=== PATIENT | male | born 1960 | race Caucasian/White ===

== ENCOUNTER 2017-03-13 21:28 | Emergency (ER) | payer BC ==
[~2017-03-13] VITALS: Ht 170.2 cm; Wt 83.9 kg
--- NOTE | ~2017-03-13 | CT4 ---
[facility] A Service of [facility] & [facility] RADIOLOGY TEXT RESULTS PATIENT: MESHA ARGUELLES LOCATION: [facility] : 60 UNIT #: [id number] AGE: [address]: Fito Carr MD SEX: M ORDER DR: [id number] [facility] [address] [place], [place] [address] [id number] MR#: [id number] #: [id number] NAME: MESHA ARGUELLES : 1960 SEX: M STUDY DATE/TIME: 03/14/2017 0:24 UNIT: [facility] ROOM: STUDY DESCRIPTION: CT Abd and Pelv Wo Cont Attending Physician: Fito Carr M.D. Ordering Physician: Fito Carr M.D. Primary Care Physician: Denilson Alston M.D. MEDICAL IMAGING REPORT This report is preliminary unless electronic signature is present EXAM CT abdomen and pelvis, noncontrast, kidney stone protocol, 03/14/2017 HISTORY 56-year-old male in the ED complaining of 3-day history of left side abdomen pain. Some nausea, vomiting and diarrhea. Past history of kidney stones. TECHNIQUE CT examination of the abdomen and pelvis without oral or IV contrast using kidney stone protocol. This CT exam was performed with one or more of the following radiation dose reduction techniques: automatic exposure control, adjustment of mA and/or kV according to patient size, and iterative reconstruction. FINDINGS ABDOMEN FINDINGS: There is an 8 mm obstructing calculus in the left mid to upper ureter several cm below the UPJ causing moderately severe left hydronephrosis. Multiple tiny nonobstructing calculi scattered throughout the medullary portions of both kidneys measuring 1-4 mm in size. 2.9 cm cyst in the lower portion of the left kidney. Several gallstones within contracted gallbladder. No bile duct dilatation. There is a well-defined exophytic mass arising from the upper surface of the mid body of the pancreas measuring up to 2.1 cm x 1.9 cm (image 39). This was present in retrospect on a previous chest CT obtained here 07/19/2015 and has not enlarged significantly. Low grade pancreatic neoplasm is suspected. Followup MRI examination of the abdomen is STS. [facility] A Service of [facility] & [facility] RADIOLOGY TEXT RESULTS PATIENT: MESHA ARGUELLES [id number] : 60 UNIT #: [id number] AGE: [address]: Fito Carr MD SEX: M ORDER DR: recommended on an outpatient basis for further characterization and to guide future management and followup. Pancreas, liver and spleen are otherwise negative. Small bowel and colon are normal in caliber and appearance. The appendix is not seen. Normal-caliber abdominal aorta. PELVIS FINDINGS: Bladder, prostate and rectum are within normal limits. Small fat-containing left inguinal hernia. IMPRESSION 1. 8 mm obstructing calculus in the left mid ureter causing moderately severe left hydronephrosis. 2. Multiple tiny nonobstructing calculi scattered throughout the medullary portions of both kidneys. 3. Circumscribed rounded mass extending from the upper surface of the mid body of the pancreas measuring up to 2.1 cm. This has not changed significantly in size in retrospect since a chest CT examination obtained here on 07/19/2015. 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 Followup MRI examination of the abdomen on a nonemergent basis is recommended for further characterization and to guide future management. 4. Cholelithiasis. No gallbladder distension or bile duct dilatation. 5. Small left inguinal hernia containing pelvic fat. Dictated by... Harshil Damico M.D. THIS IS AN ELECTRONICALLY VERIFIED REPORT Harshil Damico M.D. at 03/15/2017 6:02 AM LESIA/deven TD: 03/15/2017 01:35 JOB #: [id number] MEDICAL IMAGING REPORT Page 1 of 1 COPY
[~2017-03-13 21:28] MED LIST: ASPIRIN81 M2 PO; CLOPIDOGREL75 MG PO; COREG3.125 MG PO; COUMADIN5 MG PO; COUMADIN7.5 MG PO; LIPITOR80 MG PO; LISINOPRIL5 MG PO; METOPROLOL TAR25 MG PO; PLAVIX300 MG PO
[2017-03-13 23:08] LABS: BASOPHIL# 0.1 X10e3 (0-0.3); BASOPHIL% 0.6 % (0-2.5); EOSINOPHIL% 0.2 % (0.0-7.0); HEMATOCRIT 38.2 % (38.0-50.0); HEMOGLOBIN 12.9 gm/dL (13.0-16.0); LYMPHOCYTE# 2.2 X10e3 (1.0-3.5); LYMPHOCYTE% 13.4 % (17.0-45.0); MEAN CELL VOLUME 85.2 FL (83-96); MEAN CORPUSCULAR HEMOGLOBIN 28.8 PG (28-34); MEAN CORPUSCULAR HGB CONC 33.8 g/dL (30-36); MEAN PLATELET VOLUME 10.2 FL (6.5-11.5); MONOCYTE% 5.8 % (3.0-12.0); NEUTROPHIL# 13.3 X10e3 (1.5-7.1); PLATELET COUNT 202 X10e3 (140-420); RED BLOOD COUNT 4.48 X10e (3.90-5.60); RED CELL DISTRIBUTION WIDTH 13.4 % (11.0-15.5); WHITE BLOOD COUNT 16.6 X10e3 (4.0-10.5)
[2017-03-13 23:09] LABS: DIFF IND YES
[2017-03-13 23:17] LABS: PROTHROMBIN TIME (PATIENT) 10.5 SECONDS (10.0-11.7)
[2017-03-13 23:25] LABS: MICROCYTOSIS SL; PLATELET ESTIMATE NORMAL (NORMAL)
[2017-03-13 23:27] LABS: ALBUMIN SERUM 4.1 g/dL (3.5-5.0); BILIRUBIN, DIRECT 0.1 mg/dL (0.0-0.2); BILIRUBIN,INDIRECT 0.7 mg/dL (0.0-0.9); BILIRUBIN,TOTAL 0.8 mg/dL (0.2-2.0); BUN/CREATININE RATIO 10.58; CALCIUM SERUM 9.2 mg/dL (8.4-10.2); CREATININE SERUM 1.7 mg/dL (0.6-1.4); GLOM FILT RATE Estimated 44.1 mL/min (>60); POTASSIUM 4.6 mmol/L (3.5-5.1); PROTEIN TOTAL SERUM 7.7 g/dL (6.0-8.3)
[2017-03-14 01:31] LABS: URINE SOURCE CLEAN CATCH
[2017-03-14 01:35] LABS: URINE APPEARANCE CLEAR; URINE BILIRUBIN NEG (NEG); URINE BLOOD 2+ (NEG); URINE COLOR YELLOW; URINE GLUCOSE 250 MG/DL (NEG); URINE KETONE NEG (NEG); URINE LEUKOCYTE ESTERASE TRACE (NEG); URINE NITRATE NEG (NEG); URINE PH 6.5 (5-8); URINE PROTEIN NEG (NEG); URINE SPECIFIC GRAVITY 1.011 (1.003-1.035)
[2017-03-14 01:37] LABS: U HYALINE CASTS AUWI 0-2 /[LPF]; URINE BACTERIA AUWI NEG (NEGATIVE); URINE SQUAMOUS EPITHELIAL CELL NONE SEEN /[HPF]; UWBCS1 AUWI 0-2 (0-5)
[2017-03-14 01:38] LABS: CULTURE INDICATED? NO
== END 2017-03-14 01:58 | disposition home or self-care (01) ==
LOC: CED 21:28
PROVIDERS: Emergency Medicine
DX: N13.2 Hydronephrosis with renal and ureteral calculous obstruction (principal); I50.9 Heart failure, unspecified; K86.9 Disease of pancreas, unspecified; E16.2 Hypoglycemia, unspecified; Z79.01 Long term (current) use of anticoagulants
CPT/HCPCS: 36415; 74176; 80048; 80076; 81003; 82150; 83690; 85025; 85610; 96361; 96374; 99284; J1885